=== PATIENT | female | born 1930 | race Caucasian/White ===

== ENCOUNTER 2018-01-09 17:14 | Emergency (ER) | payer OTHER ==
[2018-01-09 17:18] VITALS: BP 145/87; PULSE 70; TEMP 97; BMI 29.2
[2018-01-09] MEDS ORDERED: ACETAMINOPHEN 325 MG TABLET (FP) ONE (18:10)
[2018-01-09] MEDS ORDERED: DIPHTH,PERTUSS(ACELL),TET 0.5 ML DISP.SYRIN IM ONE (18:20)
[2018-01-09] MEDS ORDERED: ACETAMINOPHEN 325 MG TABLET (FP) PO ONE (18:20)
--- NOTE | 2018-01-09 19:39 | PDOC ---
Attending Attestation - Resident Resident Name: KaylaAlecia - ED Attending Attestation I have performed the following: I have examined & evaluated the patient, The case was reviewed & discussed with the resident, I agree w/resident's findings & plan, Exceptions are as noted - HPI HPI: 01/09/18 19:37 87 yo female brought in for ct scan of the head after being at [facility] ER and being told the CT SCAN was not working pt had a mechanical fall at home pt is alert and conversant - Physicial Exam PE: 01/09/18 19:39 wnwd 87 yo female in no acute distress head there is a small forehead hematoma of 3 cm -there is a swollen nasal bridge with a stellate laceration to the nasal bridge eyes jessica eomi neck no midline cervical vertebral tenderness lungs cta b/l cvs [id number] abd nontender ext no deformities skin no lacerations neuro alert ,moving her extremities,seated on the gurney - Medical Decision Making 01/09/18 20:10 87 yo female p/w forehead hematoma and superficial nose laceration s/p mechanical fall ct scan head NEGATIVE for any acute intracranial pathology ct scan s spine NEGATIVE for any acute fracture pt received tetanus update and wound care and discharged home with family 01/09/18 21:50
--- NOTE | 2018-01-09 20:34 | PDOC ---
History of Present Illness - General Chief Complaint: Injury Stated Complaint: FALL/INJURY Time Seen by Provider: 01/09/18 18:05 - History of Present Illness Initial Comments: 88yo F with history of Parkinsons Disease and arthritis presenting after a mechanical fall. The episode occurred about an hour prior to arrival. The patient was reaching down for something on the ground when she lost balance and fell on her face. Denies loss of consciousness, nausea, or vomiting. Denies urinary or fecal incontinence during/after the episode. No history of seizures or arrhythmia. Takes aspirin every other day. She has swelling on her forehead and a laceration over nose. Does not know when she received her last tetanus shot. Denies fever, chills, shortness of breath, or chest pain. Past History - Past Medical History Allergies/Adverse Reactions: Allergies Allergy/AdvReac Type Severity Reaction Status Date / Time Penicillins Allergy Verified 01/09/18 17:18 Home Medications: Ambulatory Orders Aspirin 81 mg PO ASDIR 01/09/18 COPD: No Disorders: Yes HTN: Yes Other medical history: parkinsons - Suicide/Smoking/Psychosocial Hx Smoking Status: No Smoking History: Never smoked Number of Cigarettes Smoked Daily: 0 Hx Alcohol Use: No Substance Use Type: None Review of Systems - Review of Systems Comments:: Constitutional: no fever, no chills HEENT: no throat pain, no dysphagia Cardiovascular: no chest pain, no palpitations Respiratory: no cough, no shortness of breath Gastrointestinal: no abdominal pain, no nausea, no vomiting Genitourinary: no dysuria, no frequency Musculoskeletal: no myalgia, no arthralgia Skin: +laceration, +swelling Neurologic: no headache, no dizziness *Physical Exam - Vital Signs Last Vital Signs Temp Pulse Resp BP Pulse Ox 97 F L 70 18 145/87 100 01/09/18 17:15 01/09/18 17:15 01/09/18 17:15 01/09/18 17:15 01/09/18 17:15 - Physical Exam Comments: General: Awake, alert, and fully oriented, in no acute distress Head:Swelling on forehead; 1.5cm linear laceration over nasal bridge, hemostatic ; superficial scrapes over left second and fourth knuckles Eyes: EOMI, sclera anicteric ENT: Moist mucus membranes Neck: Normal ROM, supple Lungs: Lungs clear, Normal breath sounds Cardio: Regular rhythm, S1 and S2 present Abdomen: Soft, nontender. No guarding, no rebound, no masses Extremities: Normal range of motion, Distal pulses present SKIN: Warm, Dry, normal turgor Neurologic: Cranial nerves II through XII grossly intact. Normal speech, sensation, strength, coordination, and gait. Procedures - Laceration/Wound Repair Anterior Nose Wound Length: to 2.5 cm Wound Explored: clean Wound's Depth, Shape: linear Wound Repaired With: Dermabond Progress: Patient tolerated procedure well ED Treatment Course - RADIOLOGY Radiology Studies Ordered: Category Date Time Status FACIAL BONES CT W/O CONTRAST [CT] Stat CT Scan 01/09/18 18:[address] WITHOUT CONTRAST [CT] Stat CT Scan 01/09/18 18:21 Taken - Medications Given in the ED: ED Medications Discontinued Medications Generic Name Dose Route Start Last Admin Trade Name Freq PRN Reason Stop Dose Admin Acetaminophen 650 mg 01/09/18 18:20 01/09/18 18:15 Tylenol - PO 01/09/18 18:21 650 mg ONCE ONE Administration Diphtheria/Tetanus/Acell Pertussis 0.5 ml 01/09/18 18:20 01/09/18 20:31 Boostrix - IM 01/09/18 18:21 0.5 ml .ONCE ONE Administration Medical Decision Making - Medical Decision Making 88yo F with history of Parkinsons Disease and arthritis presenting after a mechanical fall. -Presentation consistent with mechanical fall -Boostrix -Tylenol 650 -CT head and facial bones: negative for acute pathology -Laceration: irrigated and dermabonded -Discharged. Patient amenable to plan. *DC/Admit/Observation/Transfer Diagnosis at time of Disposition: Fall - Discharge Dispostion Disposition: HOME Condition at time of disposition: Improved - Referrals Referrals: ON STAFF,NOT [Primary Care Provider] - - Patient Instructions Printed Discharge Instructions: How to Prevent Falls Additional Instructions: You came to the emergency department after a fall. CT imaging showed no acute pathology. You can use ice for swelling and tylenol for pain control. Follow the instructions on the medication bottle. Follow-up with your primary care doctor in 5-7 days to discuss this ED visit and to ensure that your recovery is progressing appropriately. The wound on your nose was cleaned and you received dermabond. Keep the area clean. RETURN to the ED if you experience: redness or hardness around the wound , pain or tenderness, a red streak, yellow or green discharge oozing from the wound, fever or chills. Return to the Emergency Department if you: have any chest pain, palpitations, shortness of breath, severe headaches, changes in vision, focal numbness or weakness, any severe abdominal pain, any black, tarry stool, or any other new or concerning symptoms - Post Discharge Activity
== END 2018-01-09 20:54 | disposition home or self-care (01) ==
LOC: JER 17:14
PROC: 0HQ1XZZ Repair Face Skin, External Approach (ICD-10-PCS; principal; 2018-01-09)
PROC: 3E02340 Introduction of Influenza Vaccine into Muscle, Percutaneous Approach (ICD-10-PCS; 2018-01-09)
DX: S00.83XA Contusion of other part of head, initial encounter (principal); S01.21XA Laceration without foreign body of nose, initial encounter; W18.39XA Other fall on same level, initial encounter; Y93.89 Activity, other specified; Y92.018 Other place in single-family (private) house as the place of occurrence of the external cause; Y99.8 Other external cause status; G20 Parkinson's disease; M12.9 Arthropathy, unspecified; I10 Essential (primary) hypertension; Z88.0 Allergy status to penicillin
CPT/HCPCS: 12011; 70450-TC; 70486-TC; 90471; 90715; 99281-25

== ENCOUNTER 2019-05-03 08:22 | Emergency (ER) | payer OTHER ==
[2019-05-03 08:33] VITALS: BMI 27.2
--- NOTE | 2019-05-03 08:42 | PDOC ---
History of Present Illness - General Chief Complaint: Pain, Acute Stated Complaint: BILATERAL LEG PAIN Time Seen by Provider: 05/03/19 08:32 - History of Present Illness Initial Comments: 05/03/19 09:33 88yo female biba from home for eval of feeling stiff and altered. Per the daughter, pt with hx of overactive bladder, parkinsons, htn. On meds for overactive bladder and parkisons. Per the daughter, she found her mother holding onto the side rail of the bed with her feet out of the bed. Pt did not fall or hit her head. Pt was awake, but generally stiff - unable to unflex arms and legs. States she put her back into bed and she seemed "out of it" and had a "glazed" look on her face. Pt did not have LOC. Daughter called the ambulance and upon their arrival and arrival in the ER the patient has started to move all extremities and is at her baseline ms. Per the daughter, she does get UTI - notices with smell of her urine, no recent smells. Has been constipated, but denies abd pain, n/v/d. No dysuria. No rashes. No cp/sob. No palpitations. No cristobal. No missed doses of meds, but has not taken her meds this AM. Pt currently at her baseline MS and moving all extremities. Pmhx: htn, overactive bladder Pshx: back sx in the past, tonsils all: pcn tPA Exclusion checklist 3-4.5h - Time Elapsed Date last known well: 05/02/19 - Thrombolytic Therapy Candidate Is patient eligible for thrombolytic therapy: No - Ineligibility reason(s) Reasons No tPA given: Outside of window - delayed arrival (also NIHSS = 0) NIH Stroke Scale - Last Known Well Date/Time & Onset Date Last Known Well: 05/02/19 - Initial Evaluation Level of consciousness: Alert Ask patient the month and their age: Answers both correctly Ask patient to open & close eyes; make fist and let go: Obeys both correctly Best gaze (horizontal eye movement): Normal Visual field testing: No visual field loss Facial paresis (Show teeth/raise eyebrows/close eyes tight): Normal symmetrical movement Motor Function: Left Arm: Normal Motor Function: Right Arm: Normal (extends arm 90 (or 45) degrees for 10 seconds without drift Motor Function: Left Leg: Normal (extends leg 30 degrees for 5 seconds without drift) Motor Function: Right Leg: Normal (extends leg 30 degrees for 5 seconds without drift) Limb Ataxia: No ataxia Sensory(Use pinprick test arms,legs,trunk,face/side to side): Normal Best language (Describe picture, name items, read sentences): No Aphasia Dysarthria (read several words): Normal articulation Extinction and Inattention: No abnormality - Total Score NIH Stroke Scale Score: 0 Past History - Past Medical History Allergies/Adverse Reactions: Allergies Allergy/AdvReac Type Severity Reaction Status Date / Time Penicillins Allergy Verified 05/03/19 08:27 Home Medications: Ambulatory Orders Aspirin 81 mg PO ASDIR 01/09/18 Carbidopa/Levodopa 25/250 [Sinemet 25/250 -] 1 each PO QID 05/03/19 Carbidopa/Levodopa [Carbidopa-Levo ER 50-200 Tab] 1 each PO HS 05/03/19 COPD: No Disorders: Yes HTN: Yes - Psycho Social/Smoking Cessation Hx Smoking Status: No Smoking History: Never smoked Number of Cigarettes Smoked Daily: 0 Hx Alcohol Use: No Drug/Substance Use Hx: No Substance Use Type: None Review of Systems - Review of Systems Able to Perform ROS?: Yes Is the patient limited Romanian proficient: No Constitutional: No: Chills, Fever HEENTM: No: Eye Pain, Nose Congestion, Throat Pain Respiratory: No: Cough, Shortness of Breath Cardiac (ROS): No: Chest Pain, Palpitations, Syncope ABD/GI: Yes: Constipated. No: Diarrhea, Nausea, Vomiting, Abdominal cramping : No: Burning, Dysuria Musculoskeletal: Yes: Joint Stiffness. No: Back Pain Integumentary: No: Rash Neurological: No: Headache, Numbness, Paresthesia, Weakness All Other Systems: Reviewed and Negative *Physical Exam - Vital Signs Last Vital Signs Temp Pulse Resp BP Pulse Ox 98.8 F 70 16 188/69 H 97 05/03/19 08:27 05/03/19 08:27 05/03/19 08:27 05/03/19 08:27 05/03/19 08:27 - Physical Exam General Appearance: Yes: Nourished, Appropriately Dressed, Other (resting comfortably in the bed). No: Apparent Distress HEENT: positive: PHILLIP, Normal Voice, Pharynx Normal Neck: positive: Supple Respiratory/Chest: positive: Lungs Clear, Normal Breath Sounds. negative: Respiratory Distress Cardiovascular: positive: Regular Rhythm, Regular Rate, S1, S2. negative: Edema Gastrointestinal/Abdominal: positive: Soft, Tenderness (suprapubic). 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 education II-XII NML intact, Alert, Normal Mood/Affect, Normal Response, Other (motor as described above, at baseline ms) Heart Score/ECG Review - ECG Intrepretation Comment:: 05/03/19 09:45 sinus at 72, 1st degree av block, LBBB, abnl ekg ED Treatment Course - LABORATORY CBC & Chemistry Diagram: 05/03/19 09:08 05/03/19 09:08 Medical Decision Making - Critical Care Time Total Critical Care Time (minutes): 90 Critical Care Statement: The care of this patient involved high complexity decision making to prevent further life threatening deterioration of the patient 's condition and/or to evaluate & treat vital organ system(s) failure or risk of failure. - Medical Decision Making 05/03/19 09:44 a/p: 88yo female with joint stiffness this am and was correction out of bed -had a moment of near syncope/altered ms -mild suprapubic ttp - poss uti vs constipation -will send labs, head ct, ekg, trop -will straight cath for urine -will dose am meds -will monitor and reassess 05/03/19 09:46 cxr clear labs pending abnl ekg- no prior, will discuss with PMD 05/03/19 10:11 called by radiology - Dr. Restrepo - hypodense region on R posterior/parietal region concerning for acute cva recommends MRI MRI ordered, family updated will call pmd, cards, neuro trop 0.17, abnl ekg pt will need admission 05/03/19 10:21 pts neuro at [facility] case discussed with Dr. Toth - agrees with current plan for MRI brain requests consult to Dr. Holley - call placed requests cards - Dr. Adalberto Nelson - call placed pt neuro intact Pt to MRI now pt denies cp 05/03/19 10:33 bp 201/73 05/03/19 10:[address] Stuart Godwin - [phone] 05/03/19 10:54 called by nursing - pt now with slurred speech, mumbling speech and L arm weakness, mild R facial droop onset 2 min ago repeat head ct ordered code cali activated repeat call to dr. holley 05/03/19 11:03 case again discussed with dr. holley - high risk for TPA - will discuss with the family if no new changes in the head ct pt with new lbbb, elevated trop repeat call to dr. Toth 05/03/19 11:[address] Joseph - no changes on head ct 05/03/19 11:20 dr. toth updated on current findings and exam pt to MRI in 10 min case discussed with Dr. Nelson who recommends bp control with hydralazine 10mg iv q4-6 hours. suspect trop spill from BP discussed TPA with the family - at this time will undergo MRI stroke protocol first for further evaluation and hold off on tpa 05/03/19 11:21 05/03/19 11:28 family updated both daughters at the bedside call placed to Dr. Godwin 05/03/19 12:08 pt currently in MRI repeat exam prior to MRI - LLE 5/5, LUE 3/5, facial droop resolved, slurred speech present daughters updated 05/03/19 12:29 Dr. Toth discussing with the family 05/03/19 12:[address] Joseph - carlos alberto/brendan acute infarcts on MRI R>L 05/03/19 12:59 mri results discussed with Dr. Holley - pt with multiple cva on MRI, high risk for tpa and risk of bleeding given multitude of cva discussed with family, no tpa, requests transfer to [facility] - where pts neurologist is located at [facility] repeat call and voicemail left for Dr. Stuart Godwin call placed to transfer center at [facility] 05/03/19 13:[address] Ascencio from the Stroke team to the step down unit at [place] dr. toth updated 05/03/19 13:28 family has signed the consent for transfer paperwork and has been updated dr. holley updated 05/03/19 14:41 re-eval: slurred speech again, L arm and L leg weakness now bp has been labile in the Er case discussed with Lo the resident at [facility]- bed is available ems being activated at this time nurse to nurse report being given 05/03/19 15:34 repeat bp 135/96 very labile bp pt pending pickup from [facility] 05/03/19 16:21 neg for dvt 05/03/19 16:24 temp 99.3 under the arm sinus with lbbb on the monitor filler picker in about 40 min 05/03/19 16:31 re-eval: L leg weakness improved, pt lifting it up off the bed, speech more clear, facial droop resolved, still with L arm weakness 05/03/19 17:19 ambulance has arrived for transfer to [facility] Discharge - Discharge Information Problems reviewed: Yes Clinical Impression/Diagnosis: Elevated troponin I level, Left bundle branch block (LBBB), Abnormal head CT, Acute ischemic stroke Condition: Critical Disposition: TRANSFER ACUTE CARE/OTHER HOSP - Admission No - Follow up/Referral Referrals: Lashanda oTth MD [Primary Care Provider] - - Patient Discharge Instructions - Post Discharge Activity - Transfer to Acute Care Facility [facility] Accepting Physician:: Dr. Ascencio
[2019-05-03] MEDS ORDERED: SODIUM CHLORIDE 0.9% 1000 ML INFUS.BAG IV ONE ×2 (08:55→16:31)
[2019-05-03] MEDS ORDERED: CARBIDOPA/LEVODOPA 25/250 TABLET (FP) PO ONE ×2 (08:56→09:50)
[2019-05-03] MEDS ORDERED: OXYBUTYNIN CHLORIDE 5 MG TABLET PO ONE (08:56)
[2019-05-03 09:46] LABS: BASO % 0.5 % (0-2.0); EOS % 0.3 % (0-4.5); HEMATOCRIT 35.5 % (32.4-45.2); HEMOGLOBIN 11.8 GM/dl (10.7-15.3); LYMPH % 17.6 % (8-40); MCH 32.5 pg (25.7-33.7); MCHC 33.4 g/dl (32.0-36.0); MEAN CELL VOLUME 97.3 fl (80-96); MONO % 10.9 % (3.8-10.2); NEUT % 70.7 % (42.8-82.8); PLATELET COUNT 264 K/MM3 (134-434); RBC 3.65 M/mm3 (3.60-5.2); RDW 13.7 % (11.6-15.6); WHITE BLOOD COUNT 8.5 K/mm3 (4.0-10.8)
[2019-05-03 09:48] LABS: INR 1.14 (0.82-1.09); PROTHROMBIN TIME (PATIENT) 12.7 SEC (10.2-13.0)
[2019-05-03 09:52] LABS: ALBUMIN 3.7 g/dl (3.4-5.0); BILIRUBIN,TOTAL 0.7 mg/dl (0.2-1); CALCIUM 8.9 mg/dl (8.5-10); CREATININE 0.5 mg/dl (0.55-1.3); MAGNESIUM 1.8 mg/dL (1.8-2.4); POTASSIUM 4.3 mmol/L (3.5-5.1); TOT PROT 6.6 g/dl (6.4-8.2)
[2019-05-03 10:07] LABS: EPITHELIAL CELLS FEW /hpf
[2019-05-03] MEDS ORDERED: hydrALAZINE HCL 20 MG/ML VIAL IVPUSH ONE (10:33)
[2019-05-03] MEDS ORDERED: hydrALAZINE HCL 20 MG/ML VIAL ONE (10:36)
[2019-05-03] MEDS ORDERED: ACETAMINOPHEN 1000 MG/100 ML VIAL (NON FORMULARY) IVPB ONE (16:22)
[2019-05-03] MEDS ORDERED: ACETAMINOPHEN INJECTION 100 ML IVPB ONE (16:24)
[2019-05-03 16:42] VITALS: TEMP 99.3
[2019-05-03 17:21] VITALS: BP 109/53; PULSE 94
--- NOTE | 2019-05-04 11:55 | EKG ---
Test Reason : Blood Pressure : / mmHG Vent. Rate : 071 BPM Atrial Rate : 071 BPM P-R Int : 234 ms QRS Dur : 140 ms QT Int : 420 ms P-R-T Axes : 074 -02 081 degrees QTc Int : 456 ms POOR DATA QUALITY, INTERPRETATION MAY BE ADVERSELY AFFECTED SINUS RHYTHM WITH 1ST DEGREE A-V BLOCK LEFT BUNDLE BRANCH BLOCK ABNORMAL ECG WHEN COMPARED WITH ECG OF 04-NOV-2001 11:45, [place] INTERVAL HAS INCREASED LEFT BUNDLE BRANCH BLOCK IS NOW PRESENT MINIMAL CRITERIA FOR ANTERIOR INFARCT ARE NO LONGER PRESENT BORDERLINE CRITERIA FOR INFERIOR INFARCT ARE NO LONGER PRESENT Confirmed by JOHN GANNON, KEYLA ([id number]) on 05/04/2019 11:55:06 AM Referred By: CAT REYEZ Confirmed By:KEYLA LOPEZ MD
== END 2019-05-03 17:49 | disposition short-term general hospital (02) ==
LOC: FER 08:22
PROC: 3E0337Z Introduction of Electrolytic and Water Balance Substance into Peripheral Vein, Percutaneous Approach (ICD-10-PCS; principal; 2019-05-03)
PROC: 3E033NZ Introduction of Analgesics, Hypnotics, Sedatives into Peripheral Vein, Percutaneous Approach (ICD-10-PCS; 2019-05-03)
PROC: 3E033GC Introduction of Other Therapeutic Substance into Peripheral Vein, Percutaneous Approach (ICD-10-PCS; 2019-05-03)
DX: I63.89 Other cerebral infarction (principal); I10 Essential (primary) hypertension; R79.89 Other specified abnormal findings of blood chemistry; I44.7 Left bundle-branch block, unspecified; Z88.0 Allergy status to penicillin; R30.0 Dysuria; M79.606 Pain in leg, unspecified
CPT/HCPCS: 36415; 70450-TC; 70551-TC; 71045-TC-FY; 80053; 81003; 81015; 82550; 82962; 83735; 84484; 85025; 85610; 85730; 87086; 93005; 93970-TC; 99291; 99292; J0131; J7030